=== PATIENT | female | born 1985 | race American Indian/Alaskan Native ===

== ENCOUNTER 2017-10-26 08:12 | Emergency (ER) | payer MEDICAID ==
[2017-10-26 08:21] VITALS: BP 119/82; TEMP 99.2; O2SAT 95
--- NOTE | 2017-10-26 08:30 | C.PDOC ---
History Of Present Illness 32 year old female presents to the emergency department with complaints of right ear pain persisting for the last three days. Patient admits to swimming recently, and reports feeling water in her right ear. She denies fever or decreased hearing. Time Seen by Provider: 10/26/17 08:20 Chief Complaint (Nursing): ENT Problem History Per: Patient History/Exam Limitations: no limitations Onset/Duration Of Symptoms: Days (3) Current Symptoms Are (Timing): Still Present Past Medical History Reviewed: Historical Data, Nursing Documentation, Vital Signs Vital Signs: Last Vital Signs Temp 99.2 F 10/26/17 08:18 Pulse 95 H 10/26/17 08:18 Resp 20 10/26/17 08:18 BP 119/82 10/26/17 08:18 Pulse Ox 95 10/26/17 08:39 - Medical History PMH: No Chronic Diseases Surgical History: No Surg Hx Family History: States: No Known Family Hx - Social History Hx Alcohol Use: Yes Hx Substance Use: Yes - Immunization History Hx Tetanus Toxoid Vaccination: No Hx Influenza Vaccination: No Hx Pneumococcal Vaccination: No Review Of Systems Constitutional: Negative for: Fever ENT: Positive for: Ear Pain (right). Negative for: Other (decreased hearing) Physical Exam - Physical Exam Appears: Well, Non-toxic, No Acute Distress Skin: Warm, Dry, No Rash Head: Atraumatic, Normacephalic Eye(s): bilateral: Normal Inspection Ear(s): Left: Normal, Right: Other (tragus tender, canal mildly swollen with exudates) Oral Mucosa: Moist Throat: Normal, No Erythema, No Exudate Neck: Normal ROM Cardiovascular: Rhythm Regular, No Murmur Respiratory: Normal Breath Sounds, No Rales, No Rhonchi, No Wheezing Neurological/Psych: Oriented x3, Normal Speech, Normal Cognition ED Course And Treatment O2 Sat by Pulse Oximetry: 95 (RA) Pulse Ox Interpretation: Normal Medical Decision Making Medical Decision Making: Plan: Floxin 5ml AD BID Disposition Counseled Patient/Family Regarding: Diagnosis, Need For Followup, Rx Given - Disposition Referrals: [facility] [Outside] [facility] Disposition: HOME/ ROUTINE Disposition Time: 08:28 Condition: GOOD Additional Instructions: Instill 5 drops into right ear twice a day for 7-10 days Follow up with ENT Instructions: Outer Ear Infection (DC) Forms: [facility] (Latvian) - POA Present On Arrival: None - Clinical Impression Clinical Impression: Otitis externa - PA / HIDE BUFFER / Resident Statement MD/DO has reviewed & agrees with the documentation as recorded. - Scribe Statement The provider has reviewed the documentation as recorded by the Scribe (Brennan Borges) All medical record entries made by the Scribe were at my direction and personally dictated by me. I have reviewed the chart and agree that the record accurately reflects my personal performance of the history, physical exam, medical decision making, and the department course for this patient. I have also personally directed, reviewed, and agree with the discharge instructions and disposition.
[2017-10-26 09:04] VITALS: PULSE 76; RESP 18
[2017-10-26] MEDS ORDERED: Ofloxacin 0.3% Otic Soln AD SCH (10:00)
== END 2017-10-26 09:03 | disposition home or self-care (01) ==
LOC: C.ER 08:12
DX: H60.91 Unspecified otitis externa, right ear (principal)